=== PATIENT | male | born 1995 | race Caucasian/White ===

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

== ENCOUNTER 2020-01-07 08:01 | Day surgery (SDC) | payer OTHER ==
[2019-12-25 14:52] VITALS: BMI 22.7
[2020-01-07] MEDS ORDERED: LIDOCAINE HCL/PF 2% SDV 5ML VIAL ONE (11:04)
[2020-01-07] MEDS ORDERED: PROPOFOL 20 ML ONE ×2 (11:04)
[2020-01-07 12:04] VITALS: TEMP 98
[2020-01-07 12:37] VITALS: BP 120/68; PULSE 75
--- NOTE | 2020-01-09 15:28 | PATH ---
Surgical Pathology Report Patient Name: EDVIN CUBA [facility]. Rec. #: [id number] /Age/Gender: 1995 (Age: 24) / M Account: [id number] Location: [facility] Taken: 01/07/2020 Received: 01/07/2020 Reported: 01/09/2020 Physicians: Evelyn Valdez M.D. Specimen(s) Received A: SECOND PORTION DUODENUM B: ANTRUM C: GE JUNCTION Clinical History Weight loss Postoperative diagnosis: Gastritis Final Diagnosis A. DUODENUM, SECOND PORTION, BIOPSY: DUODENAL MUCOSA WITHOUT SIGNIFICANT PATHOLOGIC FINDINGS. B. GASTRIC ANTRUM, BIOPSY: GASTRIC ANTRAL MUCOSA WITH MILD CHRONIC GASTRITIS. IMMUNOHISTOCHEMICAL STAIN FOR H. PYLORI IS NEGATIVE. C. GE JUNCTION, BIOPSY: GASTRIC CARDIAC TYPE MUCOSA WITH MILD CHRONIC GASTRITIS. NO SQUAMOUS MUCOSA, INTESTINAL METAPLASIA, OR DYSPLASIA IDENTIFIED. IMMUNOHISTOCHEMICAL STAIN FOR H. PYLORI IS NEGATIVE. Positive and negative controls (internal if applicable) show appropriate results. Electronically Signed Evelyn Zacarias M.D. Gross Description A. Received in formalin, labeled "biopsy second portion of duodenum" is a burroughs, irregular portion of soft tissue measuring 0.4 cm. in greatest dimension. The specimen is submitted in toto in one cassette. B. Received in formalin, labeled "biopsy gastric antrum" is a burroughs, irregular portion of soft tissue measuring 0.5 cm. in greatest dimension. The specimen is submitted in toto in one cassette. C. Received in formalin, labeled "biopsy GE junction" is a burroughs, irregular portion of soft tissue measuring 0.5 cm. in greatest dimension. The specimen is submitted in toto in one cassette. 01/08/2020 saudi01/08/2020
== END 2020-01-07 12:25 | disposition home or self-care (01) ==
LOC: FASU-ENDO 08:01
PROVIDERS: ATTEND Internal Medicine Gastroenterology
PROC: 0DB68ZX Excision of Stomach, Via Natural or Artificial Opening Endoscopic, Diagnostic (ICD-10-PCS; 2020-01-07)
PROC: 0DB48ZX Excision of Esophagogastric Junction, Via Natural or Artificial Opening Endoscopic, Diagnostic (ICD-10-PCS; 2020-01-07)
PROC: 0DB98ZX Excision of Duodenum, Via Natural or Artificial Opening Endoscopic, Diagnostic (ICD-10-PCS; principal; 2020-01-07 11:31)
DX: D50.9 Iron deficiency anemia, unspecified (principal); K29.50 Unspecified chronic gastritis without bleeding
CPT/HCPCS: 88305-TC; 88342-TC

== ENCOUNTER 2020-01-14 09:55 | Day surgery (SDC) | payer OTHER ==
[2020-01-09 16:43] VITALS: BMI 22.7
[2020-01-14 10:29] VITALS: TEMP 98.3
[2020-01-14] MEDS ORDERED: PROPOFOL 20 ML ONE ×3 (11:00)
[2020-01-14 16:50] VITALS: BP 102/63; PULSE 61
--- NOTE | 2020-01-16 20:19 | PATH ---
Surgical Pathology Report Patient Name: EDVIN CUBA [facility]. Rec. #: [id number] /Age/Gender: 1995 (Age: 24) / M Account: [id number] Location: [facility] Taken: 01/14/2020 Received: 01/14/2020 Reported: 01/16/2020 Physicians: Evelyn Valdez M.D. Specimen(s) Received A: RIGHT COLON B: TRANSVERSE COLON C: DESCENDING COLON Clinical History Anemia, weight loss Postoperative diagnosis: Rule out microscopic colitis, hemorrhoids Final Diagnosis A. COLON, RIGHT, BIOPSY: COLONIC MUCOSA WITHOUT SIGNIFICANT PATHOLOGIC FINDINGS. B. TRANSVERSE COLON, BIOPSY: COLONIC MUCOSA WITH PROMINENT LYMPHOID AGGREGATE. C. DESCENDING COLON, BIOPSY: COLONIC MUCOSA WITH PROMINENT LYMPHOID AGGREGATE. Electronically Signed Evelyn Zacarias M.D. Gross Description A. Received in formalin, labeled "right colon" is a burroughs, irregular portion of soft tissue measuring 0.3 cm. in greatest dimension. The specimen is submitted in toto in one cassette. B. Received in formalin, labeled "transverse colon" is a burroughs, irregular portion of soft tissue measuring 0.3 cm. in greatest dimension. The specimen is submitted in toto in one cassette. C. Received in formalin, labeled "descending colon" is a burroughs, irregular portion of soft tissue measuring 0.4 cm. in greatest dimension. The specimen is submitted in toto in one cassette. MLSZ/01/15/2020 sanml/01/15/2020
== END 2020-01-14 13:15 | disposition home or self-care (01) ==
LOC: FASU-ENDO 09:55
PROVIDERS: ATTEND Internal Medicine Gastroenterology
PROC: 0DBL8ZX Excision of Transverse Colon, Via Natural or Artificial Opening Endoscopic, Diagnostic (ICD-10-PCS; 2020-01-14)
PROC: 0DBH8ZX Excision of Cecum, Via Natural or Artificial Opening Endoscopic, Diagnostic (ICD-10-PCS; 2020-01-14)
PROC: 0DBK8ZX Excision of Ascending Colon, Via Natural or Artificial Opening Endoscopic, Diagnostic (ICD-10-PCS; principal; 2020-01-14 12:12)
DX: D50.9 Iron deficiency anemia, unspecified (principal); K64.0 First degree hemorrhoids; K63.89 Other specified diseases of intestine
CPT/HCPCS: 88305-TC